=== PATIENT | male | born 1950 | race Two or more races ===

== ENCOUNTER 2018-10-07 09:48 | Outpatient (CLI) | payer OTHER | END 2018-10-07 10:07 | disposition home or self-care (01) | LOC: RAD 09:48 | DX: M25.532 Pain in left wrist (principal); M25.561 Pain in right knee ==

== ENCOUNTER 2018-10-08 13:32 | Outpatient (CLI) | payer OTHER | END 2018-10-08 13:33 | disposition home or self-care (01) | LOC: SONOGRAMA 13:32 | DX: M75.01 Adhesive capsulitis of right shoulder (principal) ==

== ENCOUNTER 2021-05-02 18:44 | Emergency (ER) | payer OTHER ==
[~2021-05-02] VITALS: Ht 172.7 cm; Wt 74.8 kg
[2021-05-02] MEDS ORDERED: LIPITOR20 MG (18:53)
== END 2021-05-02 21:38 | disposition home or self-care (01) ==
LOC: ER 18:44
DX: R03.0 Elevated blood-pressure reading, without diagnosis of hypertension (principal); I10 Essential (primary) hypertension

== ENCOUNTER 2021-09-07 16:17 | Emergency (ER) | payer OTHER ==
[~2021-09-07] VITALS: Ht 172.7 cm; Wt 74.8 kg
[~2021-09-07 16:17] MED LIST: LIPITOR20 MG
== END 2021-09-07 20:47 | disposition home or self-care (01) ==
LOC: ER 16:17
DX: S52.501A Unspecified fracture of the lower end of right radius, initial encounter for closed fracture (principal); W10.9XXA Fall (on) (from) unspecified stairs and steps, initial encounter; Y93.9 Activity, unspecified; Y92.018 Other place in single-family (private) house as the place of occurrence of the external cause

== ENCOUNTER 2021-09-13 08:41 | Outpatient (CLI) | payer OTHER | END 2021-09-13 08:52 | disposition home or self-care (01) | LOC: RAD 08:41 | PROVIDERS: ATTEND Orthopaedic Surgery | DX: S52.531A Colles' fracture of right radius, initial encounter for closed fracture (principal) ==

== ENCOUNTER 2021-09-13 13:56 | Outpatient (CLI) | payer OTHER | END 2021-09-13 14:12 | disposition home or self-care (01) | LOC: LAB 13:56 | PROVIDERS: ATTEND Orthopaedic Surgery | DX: D64.9 Anemia, unspecified (principal); E88.9 Metabolic disorder, unspecified; D68.8 Other specified coagulation defects; N39.0 Urinary tract infection, site not specified; B95.62 Methicillin resistant Staphylococcus aureus infection as the cause of diseases classified elsewhere; Z76.89 Persons encountering health services in other specified circumstances; I10 Essential (primary) hypertension ==

== ENCOUNTER 2021-09-18 06:00 | Day surgery (SDC) | payer OTHER ==
[2021-09-18] MEDS ORDERED: SULFAMETHOXAZO1 EACH PO (10:55)
[2021-09-18] MEDS ORDERED: BACTRIM DS TAB1 EACH PO (14:35)
== END 2021-09-18 12:35 | disposition home or self-care (01) ==
LOC: CIR.AMB 06:00
PROVIDERS: ATTEND Orthopaedic Surgery
DX: S52.501A Unspecified fracture of the lower end of right radius, initial encounter for closed fracture (principal); M62.431 Contracture of muscle, right forearm; M65.4 Radial styloid tenosynovitis [de Quervain]; I10 Essential (primary) hypertension

== ENCOUNTER 2021-10-11 14:12 | Outpatient (CLI) | payer OTHER ==
[~2021-10-11 14:12] MED LIST changes: +BACTRIM DS TAB1 EACH PO; +SULFAMETHOXAZO1 EACH PO
== END 2021-10-11 14:17 | disposition home or self-care (01) ==
LOC: RAD 14:12
PROVIDERS: ATTEND Orthopaedic Surgery
DX: S52.571D Other intraarticular fracture of lower end of right radius, subsequent encounter for closed fracture with routine healing (principal)

== ENCOUNTER 2021-10-13 10:06 | Outpatient (CLI) | payer OTHER | END 2021-10-13 16:29 | disposition home or self-care (01) | LOC: LAB 10:06 | PROVIDERS: ATTEND Orthopaedic Surgery | DX: D64.9 Anemia, unspecified (principal); M06.4 Inflammatory polyarthropathy ==

== ENCOUNTER 2021-10-24 14:00 | Outpatient (CLI) | payer OTHER | END 2021-10-24 14:01 | disposition home or self-care (01) | LOC: LAB 14:00 | PROVIDERS: ATTEND Orthopaedic Surgery | DX: D64.9 Anemia, unspecified (principal); M06.4 Inflammatory polyarthropathy; S52.571D Other intraarticular fracture of lower end of right radius, subsequent encounter for closed fracture with routine healing ==

== ENCOUNTER 2021-10-30 08:03 | Outpatient (CLI) | payer OTHER | END 2021-10-30 08:15 | disposition home or self-care (01) | LOC: TOM 08:03 | PROVIDERS: ATTEND Orthopaedic Surgery | DX: M25.531 Pain in right wrist (principal) ==

== ENCOUNTER 2021-11-28 13:43 | Outpatient (CLI) | payer OTHER | END 2021-11-28 13:50 | disposition home or self-care (01) | LOC: RAD 13:43 | PROVIDERS: ATTEND Orthopaedic Surgery | DX: S52.571D Other intraarticular fracture of lower end of right radius, subsequent encounter for closed fracture with routine healing (principal) ==

== ENCOUNTER 2021-12-04 15:11 | Outpatient (CLI) | payer OTHER | END 2021-12-04 15:14 | disposition home or self-care (01) | LOC: LAB 15:11 | PROVIDERS: ATTEND Orthopaedic Surgery | DX: D64.9 Anemia, unspecified (principal); E88.9 Metabolic disorder, unspecified; D68.8 Other specified coagulation defects; N39.0 Urinary tract infection, site not specified; A49.02 Methicillin resistant Staphylococcus aureus infection, unspecified site; E11.9 Type 2 diabetes mellitus without complications; I10 Essential (primary) hypertension; I49.9 Cardiac arrhythmia, unspecified ==

== ENCOUNTER 2021-12-19 05:52 | Day surgery (SDC) | payer OTHER ==
[~2021-12-19] VITALS: Ht 172.7 cm; Wt 74.8 kg
== END 2021-12-19 14:25 | disposition home or self-care (01) ==
LOC: CIR.AMB 05:52
PROVIDERS: ATTEND Orthopaedic Surgery
DX: T84.84XA Pain due to internal orthopedic prosthetic devices, implants and grafts, initial encounter (principal); M96.631 Fracture of radius or ulna following insertion of orthopedic implant, joint prosthesis, or bone plate, right arm; Z96.631 Presence of right artificial wrist joint; Y83.8 Other surgical procedures as the cause of abnormal reaction of the patient, or of later complication, without mention of misadventure at the time of the procedure; M85.431 Solitary bone cyst, right ulna and radius; I10 Essential (primary) hypertension; Z20.822 Contact with and (suspected) exposure to COVID-19

== ENCOUNTER 2023-05-27 14:23 | Emergency (ER) | payer OTHER ==
[~2023-05-27] VITALS: Ht 172.7 cm; Wt 74.8 kg
[2023-05-27 16:00] LABS: HEMATOCRIT 43.1 % (39.0-48.0); HEMOGLOBIN 15.1 g/dL (13-16.00); MEAN CELL VOLUME 96.5 fL (80.0-100.00); MEAN CORPUSCULAR HEMOGLOBIN 33.8 pg (27.00-32.0); MEAN CORPUSCULAR HGB CONC 35.1 g/dl (32.0-36.0); PLATELET COUNT 224 K/uL (150-450); RED BLOOD COUNT 4.47 M/uL (4.00-6.00); RED CELL DISTRIBUTION WIDTH 13.8 % (11.5-14.5)
[2023-05-27 16:15] LABS: INR 1.02; PARTIAL THROMBOPLASTIN TIME 33.7 SECONDS (22.0-34.0); PROTHROMBIN TIME 10.7 SECONDS (9.0-11.5)
[2023-05-27 16:20] LABS: BILIRUBIN TOTAL 0.76 mg/dL (0.3-1.2); CALCIUM 8.7 mg/dL (8.5-10.1); CREATININE SERUM 1.22 mg/dL (0.70-1.30); GFR 58.23; GLOBULINA 4.5 G/DL (2.4-3.5); POTASSIUM 3.68 mEq/L (3.5-5.1); TOTAL PROTEIN 7.5 gm/dL (6.4-8.2)
[2023-05-28 07:00] LABS: PH,URINE 5.5 (5.0-8.0); URINE APPEARANCE Clear; URINE BILIRRUBIN Negative (NEGATIVE); URINE BLOOD Negative; URINE COLOR Yellow; URINE GLUCOSE Negative (NEGATIVE); URINE LEUKOCYTE Negative; URINE NITRATE Negative
[2023-05-28 07:01] LABS: URINE BACTERIA 15.1 uL (0.0-1933); URINE EPITHELIAL CELLS 6.9 uL (0.0-38.8); URINE RBC 8.4 uL (0.0-20.8); URINE WBC 3.5 uL (0.0-23.2)
[2023-05-28 07:05] LABS: URINE PROTEIN 100 (NEGATIVE)
== END 2023-05-28 13:35 | disposition home or self-care (01) ==
LOC: ER 14:23
PROVIDERS: Emergency Medicine; General Practice
DX: R55 Syncope and collapse (principal); R42 Dizziness and giddiness; I10 Essential (primary) hypertension; Z86.73 Personal history of transient ischemic attack (TIA), and cerebral infarction without residual deficits; Z20.822 Contact with and (suspected) exposure to COVID-19
CPT/HCPCS: 36415; 93005; 93041; 96365; 99285; J3490; 70544